=== PATIENT | male | born 1980 | race Caucasian/White ===

== ENCOUNTER 2017-01-20 03:44 | Emergency (ER) | payer BC ==
[~2017-01-20] VITALS: Ht 172.7 cm; Wt 70.5 kg
[2017-01-20 03:46] VITALS: Ht 172.7 cm; Wt 70.5 kg
[2017-01-20] MEDS ORDERED: KETOROLAC 30 MG INJ IV STA (04:13)
[2017-01-20] MEDS ORDERED: METHYLPREDNISOLONE 125 MG INJ IV ONE (04:30)
[2017-01-20] MEDS ORDERED: HYDR-906 PO (04:36)
[2017-01-20] MEDS ORDERED: GABA300C16 PO (04:36)
[2017-01-20] MEDS ORDERED: IBUP-1542 PO (04:36)
[2017-01-20] MEDS ORDERED: PRED50TA PO (04:36)
--- NOTE | 2017-01-20 04:36 | ERD ---
ER Documentation Chief Complaint Chief Complaint lower back pain radiating to left leg x 3 days. hx of herniated disc HPI 36-year-old male presents here to emergency department for complaints of left lower back pain radiating to the left lower leg started 3 days ago worse tonight. Patient has history of degenerative disc disease. Patient describes the pain as sharp pain, 8/10 scale, as was upon movement and radiates from the left lower back to the left lower leg. Patient denies any numbness or tingling. Patient denies any incontinence. Patient denies any fever chills. Patient denies any trauma in affected area. ROS All systems reviewed and are negative except as per history of present illness. Medications Home Meds Active Scripts Gabapentin* (Gabapentin*) 300 Mg Capsule, 300 MG PO BID, #60 CAP Prov:JOON THOMPSON [employer] 01/20/17 Prednisone* (Prednisone*) 50 Mg Tablet, 50 MG PO DAILY for 3 Days, TAB Prov:JOON THOMPSON [employer] 01/20/17 Hydrocodone/Acetaminophen (Kent 5-325 Tablet) 1 Each Tablet, 1 TAB PO Q6H Y for SEVERE PAIN LEVEL 7-10, #20 TAB Prov:JOON THOMPSON NP 01/20/17 Ibuprofen* (Motrin*) 600 Mg Tab, 600 MG PO Q6H Y for PAIN AND OR ELEVATED TEMP, #30 TAB Prov:JOON THOMPSON [employer] 01/20/17 Reported Medications [none] Unknown Strength No Conflict Check 01/20/17 Allergies Allergies: Coded Allergies: No Known Allergy (Unverified , 01/20/17) PMhx/Soc Medical and Surgical Hx: pt denies Medical Hx, pt denies Surgical Hx History of Surgery: No Anesthesia Reaction: No Hx Neurological Disorder: No Hx Respiratory Disorders: No Hx Cardiac Disorders: No Hx Psychiatric Problems: No Hx Miscellaneous Medical Probl: No Hx Alcohol Use: No Hx Substance Use: No Hx Tobacco Use: No Smoking Status: Never smoker FmHx Family History: No coronary disease, No diabetes, No other Physical Exam Vitals Vital Signs Date Time Temp Pulse Resp B/P Pulse Ox O2 Delivery O2 Flow Rate FiO2 01/20/17 06:02 78 18 138/75 97 Room Air 01/20/17 03:46 98.0 94 20 131/65 100 Physical Exam GENERAL: The patient is well developed and appropriate for usual state of health, in no apparent distress. CHEST: Clear to auscultation bilaterally. There are no rales, wheezes or rhonchi. HEART: Regular rate and rhythm. No murmurs, clicks, rubs or gallops. No S3 or S4. ABDOMEN: Soft, nontender and nondistended. Good bowel sounds. No rebound or guarding. No gross peritonitis. No gross organomegaly or masses. No Nevarez sign or McBurney point tenderness. BACK: No midline or flank tenderness. Positive left straight leg test. Tenderness on palpation of the left lower back. Muscle spasms noted. EXTREMITIES: Equal pulses bilaterally. There is no peripheral clubbing, cyanosis or edema. No focal swelling or erythema. Full range of motion. Grossly neurovascularly intact. NEURO: Alert and oriented. Cranial nerves 2-12 intact. Motor strength in all 4 extremities with 5/5 strength. Sensation grossly intact. Normal speech and gait. SKIN: There is no apparent rash or petechia. The skin is warm and dry. HEMATOLOGIC AND LYMPHATIC: There is no evidence of excessive bruising or lymphedema. No gross cervical, axillary, or inguinal lymphadenopathy. Results 24 hrs Current Medications Medications (Trade) Dose Ordered Sig/Julio Cesar Route PRN Reason Start Time Stop Time Status Last Admin Dose Admin Ketorolac Tromethamine (Toradol) 30 mg ONCE STAT IV 01/20/17 04:13 01/20/17 04:14 DC 01/20/17 04:24 Methylprednisolone Sodium Succinate (Solu-Medrol) 125 mg ONCE ONCE IV 01/20/17 04:30 01/20/17 04:31 DC 01/20/17 04:24 Morphine Sulfate (morphine) 6 mg ONCE ONCE IV 01/20/17 06:00 01/20/17 06:01 DC 01/20/17 05:56 Ondansetron HCl (Zofran Inj) 4 mg ONCE STAT IV 01/20/17 05:36 01/20/17 05:37 DC 01/20/17 05:56 Patient was given medication for pain here in emergency department, after treatment, patient verbalized feeling much better. Patient's pain is improved. Procedures/MDM Medical Decision Making: Patient's pain is most likely consistent with a back strain with sciatica. There is no suspicion for neurovascular compromise. Patient has intact sensation and circulation of the affected extremity and distal extremities. No incontinence, no suspicion for cauda equina syndrome, no saddle anesthesia, no symptoms of any acute bacterial infection, no symptoms of any perirectal abscesses, pilonidal cyst.There is low suspicion for septic arthritis. Patient does not have any fever. No symptoms of any aortic dissection or aortic aneurysm. Radiology exam not indicated at this time. Disposition: Home. Patient is given prescription for ibuprofen for mild to moderate pain, Kent for severe pain, gabapentin for nerve pain, prednisone for 5 days. Patient was advised to avoid heavy lifting , apply warm compresses on affected area. Patient was advised that if symptoms are worse, numbness, tingling, high fever, unable to move joint, worsening symptoms, to return to emergency department immediately. Otherwise, patient is advised to follow up with the primary care doctor in 5-7 days for reevaluation of symptoms. Disclaimer: Inadvertent spelling and grammatical errors are likely due to EHR/ dictation software use and do not reflect on the overall quality of patient care. Also, please note that the electronic time recorded on this note does not necessarily reflect the actual time of the patient encounter. Departure Diagnosis: Primary Impression: Back pain Back pain location: low back pain Chronicity: acute Back pain laterality: left Sciatica presence: with sciatica Sciatica laterality: sciatica of left side Qualified Code: M54.42 - Acute left-sided low back pain with left-sided sciatica Condition: Stable Patient Instructions: Back Pain W/ Sciatica Additional Instructions: Patient is given prescription for ibuprofen for mild to moderate pain, Kent for severe pain, gabapentin for nerve pain, prednisone for 5 days. Patient was advised to avoid heavy lifting , apply warm compresses on affected area. Patient was advised that if symptoms are worse, numbness, tingling, high fever, unable to move joint, worsening symptoms, to return to emergency department immediately. Otherwise, patient is advised to follow up with the primary care doctor in 5-7 days for reevaluation of symptoms. JOON THOMPSON NP Jan 20, 2017 04:36
[2017-01-20] MEDS ORDERED: ONDANSETRON 4 MG INJ IV STA (05:36)
[2017-01-20] MEDS ORDERED: morphine 10 MG INJ IV ONE (06:00)
[2017-01-20 06:02] VITALS: BP 138/75; PULSE 78; RESP 18
== END 2017-01-20 06:03 | disposition home or self-care (01) ==
LOC: FTE 03:44
DX: M54.42 Lumbago with sciatica, left side (principal)
CPT/HCPCS: J1885; J2270; J2405; J2930; 96374; 96375